=== PATIENT | male | born 1970 | race Caucasian/White ===

== ENCOUNTER 2019-04-28 15:13 | Observation (INO) | payer SELFPAY ==
--- OUTSIDE RECORDS SUMMARY | 2019-04-28 15:15 | XMS REPORT | Clinical Summary ---
:1970 Author Organization [facility] Address [address] [place] [address] Care Team Providers Name Role Phone Nighat Primary Care Provider Allergies Active Allergy Reactions Severity Noted Date Comments Penicillins Other (See Comments) High 06/05/2014 Unknown Medications Medication Sig Dispensed Refills Start Date End Date Status testosterone Inject 0.5 mLs (100 10 mL 0 06/05/2014 Active cypionate mg total) (DEPOTESTOTERONE intramuscularly once CYPIONATE) 200 a week. mg/mL injectionIndication s: Low testosterone cholecalciferol, Take 1 tablet (5,000 90 tablet 1 06/11/2014 Active vitamin D3, Units total) by mouth (VITAMIN D3) 5,000 daily. unit TabIndications: Vitamin D deficiency amLODIPine Take 1 tablet (10 mg 30 tablet 4 11/15/2014 Active (NORVASC) 10 MG total) by mouth tablet daily. benazepril-hydrochl Take 1 tablet by 30 tablet 4 11/15/2014 Active orthiazide mouth daily. (LOTENSIN HCT) 20-12.5 mg per tablet FARXIGA 10 mg Tab TAKE ONE (1) 30 tablet 0 04/29/2015 Active TABLET(S) BY MOUTH ONCE A DAY. pravastatin TAKE ONE (1) 30 tablet 0 05/20/2015 Active (PRAVACHOL) 20 MG TABLET(S) BY MOUTH tablet ONCE A DAY IN THE EVENING. Active Problems Problem Noted Date Low testosterone 06/05/2014 Vitamin D deficiency 06/05/2014 Diabetes 06/05/2014 Hypertension 06/05/2014 Conjunctivitis 06/05/2014 Vision changes 06/05/2014 Social History Tobacco Use Types Packs/Day Years Used Date Former Smoker Cigarettes 2 Quit: 09/12/2009 Smokeless Tobacco: Former User Snuff, Chew Tobacco Cessation: Counseling Given: No Alcohol Use Drinks/Week oz/Week Comments Yes 0.0 Former - Alcohol abuse Sex Assigned at Date Recorded Not on file Job Start Date Occupation Industry Not on file Not on file Not on file Travel History Travel Start Travel End No recent travel history available. Last Filed Vital Signs Not on file Plan of Treatment Health Maintenance Due Date Last Done Comments INFLUENZA VACCINE 06/12/2018 Results Not on fileafter 04/27/2018 Insurance Payer Benefit Plan / Group Subscriber ID Type Phone Address [employer] [address] [phone]
--- OUTSIDE RECORDS SUMMARY | 2019-04-28 15:16 | XMS REPORT ---
:1970 Author Organization [facility] Address [address] [place] [address] [address] [place] [address] Care Team Providers Name Role Phone Unavailable Unavailable Unavailable Problems This patient has no known problems. Allergies, Adverse Reactions, Alerts This patient has no known allergies or adverse reactions. Medications This patient has no known medications. Encounters Start End Encounter Admission Attending Care Care Encounter Date/Time Date/Time Type Type Clinicians Facility Department ID 2019-02-07 2019-02-07 Emergency E [facility] [id number] 02:00:00 02:00:00
--- OUTSIDE RECORDS SUMMARY | 2019-04-28 15:16 | XMS REPORT | Summary of Care ---
:1970 Author Organization [facility] Address [address] [place] [address]- Encounter HQ Encntr_alias(FIN) [id number] Date(s): 02/07/19 - 02/07/[address] [address]- Encounter Diagnosis Shoulder pain (Discharge Diagnosis) - 02/07/19 Hypertension (Discharge Diagnosis) - 02/07/19 Discharge Disposition: Home or Self Care Attending Physician: Marta Gongora MD Vital Signs Most recent to oldest [Reference Range]: 1 2 Height 172.72 cm (02/07/19 2:04 AM) Blood Pressure [90-140/60-90 mmHg] 158/81 mmHg 190/110 mmHg *HI* *HI* (02/07/19 2:59 AM) (02/07/19 2:04 AM) Respiratory Rate [14-20 BRMIN] 18 BRMIN 18 BRMIN (02/07/19 3:08 AM) (02/07/19 2:04 AM) Peripheral Pulse Rate [60-100 bpm] 76 bpm 87 bpm (02/07/19 3:08 AM) (02/07/19 2:04 AM) Weight 100 kg (02/07/19 2:04 AM) Body Mass Index 33.52 m2 (02/07/19 2:04 AM) Problem List Condition Effective Dates Status Health Status Informant Chest pain(Confirmed) Active Diabetes mellitus - adult Active onset(Confirmed) Diabetes(Confirmed) Resolved Essential hypertension1 05/09/12 Active Hypercholesterolemia2 Active Hyperlipidemia3 05/09/12 Active Hypertension(Confirmed) Active HTN (hypertension)(Confirmed) Active Type 2 diabetes mellitus4 05/09/12 Active Vitamin D deficiency5 05/09/12 Active 1Data migrated from [employer] on 02/08/15.2Data migrated from [employer] on 02/08/15.3Data migrated from [employer] on 02/08/15.4Data migrated from [employer] on 02/08/15.5Data migrated from [employer] on 02/08/15. Allergies, Adverse Reactions, Alerts Substance Reaction Severity Status penicillins1 Active 1Data migrated from [employer] on 04/10/15. Originally documented as PENICILLIN. rash Medications morphine Sulfate 6 mg, Route: IM, ONCE, Dosing Weight 100, kg, Priority: STAT, Start date: 2:21:00 CDT, Stopdate: 02/07/19 2:21:00 CDT Start Date: 02/07/19 Stop Date: 02/07/19 Status: Completed Results No data available for this section Immunizations No data available for this section Procedures No data available for this section Social History Social History Type Response Smoking Status Never smoker; Exposure to Tobacco Smoke None; Cigarette Smoking Last 365 Days No; Reg Smoking Cessation Counseling No entered on: 02/07/19 Assessment and Plan No data available for this section
--- OUTSIDE RECORDS SUMMARY | 2019-04-28 15:16 | XMS REPORT | Summary of Care ---
:1970 Author Organization [facility] Address [address] [place] [address]- Encounter HQ Encntr_brittaney(FIN) [id number] Date(s): 04/16/17 - 04/17/[address] [address]- Discharge Diagnosis: Sinusitis Discharge Disposition: Home or Self Care Attending Physician: Alex Juarez MD Vital Signs Most recent to oldest [Reference Range]: 1 Height 172.72 cm (04/17/17 12:00 AM) Blood Pressure [90-140/60-90 mmHg] 171/107 mmHg *HI* (04/17/17 12:00 AM) Respiratory Rate [14-20 BRMIN] 18 BRMIN (04/17/17 12:00 AM) Peripheral Pulse Rate [60-100 bpm] 73 bpm (04/17/17 12:00 AM) Weight 98.636 kg (04/17/17 12:00 AM) Body Mass Index 33.06 m2 (04/17/17 12:00 AM) Problem List Condition Effective Dates Status [...] Severity Status penicillins1 Active 1Data migrated from [employer] on 04/10/15. Originally documented as PENICILLIN. rash Medications doxycycline 100 mg, 1 tab, Route: PO, Drug form: TAB, ONCE, Dosing Weight 98.636, kg, Start date: 04/17/17 0:19:00 CDT, Stop date: 04/17/17 0:19:00 CDT Notes: NO MILK/ANTACIDS/IRON Take 1 hour before or 2 hours after dairy products Start Date: 04/17/17 Stop Date: 04/17/17 Status: Completeddoxycycline monohydrate 100 mg oral tablet 100 mg=1 tab, PO, Q12H, X 10 day, # 20 tab, 0 Refill(s) Start Date: 04/17/17 Stop Date: 04/27/17 Status: OrderedFlonase 0.05 mg/inh nasal spray 2 spray, NASAL, BID, # 16 gm, 0 Refill(s) Start Date: 04/17/17 Status: OrderedNorco 5/325 oral tablet 2 tab, Route: PO, Drug Form: TAB, Dosing Weight 98.636, kg, ONCE, STAT, Start date: 04/17/17 0:26:00CDT, Stop date: 04/17/17 0:26:00 CDT Notes: (Same as: [place] 325/5) Do not exceed 4gm/day of acetaminophen. Start Date: 04/17/17 Stop Date: 04/17/17 Status: CompletedTylenol with Codeine #3 oral tablet 1 - 2 tab, PO, Q6H, PRN Pain, X 2 day, # 20 tab, 0 Refill(s) Start Date: 04/17/17 Stop Date: 04/19/17 Status: Completed Results No data available for this section Immunizations No data available for this section Procedures No data available for this section Social History Social History Type Response Smoking Status Never smoker; Exposure to Tobacco Smoke None; Cigarette Smoking Last 365 Days No; Reg Smoking Cessation Counseling No Assessment and Plan No data available for this section
--- OUTSIDE RECORDS SUMMARY | 2019-04-28 15:16 | XMS REPORT | Continuity of Care Document ---
:1970 Author Organization [facility] Care Team Providers Name Role Phone [facility] Unavailable Unavailable Problems Problem Status Onset Classification Date Comments Source Date Reported Pain in unspecified MH The shoulder 019 9 [place] Essential (primary) MH The hypertension 019 9 [place] L SHOULDER PAIN Active MH The 019 [facility] Chronic sinusitis, MH The unspecified 017 7 [place] FACIAL SWELLING Active MH The 017 [place] Essential hypertension Active Problem Data The (disorder) 012 9 migrated [place] from [employer] on 02/08/15. Hyperlipidemia Active Problem Data The (disorder) 012 9 migrated [place] from [employer] on 02/08/15. Vitamin D deficiency Active Problem Data The (disorder) 012 9 migrated [place] from [employer] on 02/08/15. Chest pain (finding) Active Problem MH The 9 [place] Diabetes mellitus type Active Problem The 2 (disorder) 9 [place] Diabetes mellitus Resolved Problem The (disorder) 9 [place] Hypercholesterolemia Active Problem Data The (disorder) 9 migrated [place] from [employer] on 02/08/15. Hypertensive disorder, Active Problem The systemic arterial 9 [place] (disorder) Medications Medication Details Route Status Patient Ordering Order Source Instructions Provider Date Morphine 6 mg, Inactive The Route: IM, Wes Rosario ONCE, Dosing Weight 100, kg, Priority: STAT, Start date: 02/07/19 2:21:00 CDT, Stop date: 02/07/19 2:21:00 CDT Acetaminophen 2 tab, Inactive The 325 MG / Route: PO, Jacob Rosario Hydrocodone Drug Form: Bitartrate 5 MG TAB, Oral Tablet Dosing [[place] 5/325] Weight 98.636, kg, ONCE, STAT, Start date: 04/17/17 0:26:00 CDT, Stop date: 04/17/17 0:26:00 CDTNotes: (Same as: [place] 325/5) Do not exceed 4gm/day of acetaminop hen. Acetaminophen 1 - 2 tab, No Longer The 300 MG / Codeine PO, Q6H, Active [facility] [place] Phosphate 30 MG PRN Pain, Oral Tablet X 2 day, # [Tylenol with 20 tab, 0 Codeine #3] Refill(s) Fluticasone 2 spray, Active The propionate 0.05 NASAL, Jacob Rosario MG/ACTUAT BID, # 16 Metered Dose gm, 0 Nasal [place] Refill(s) [Flonase] doxycycline 100 mg=1 Active The monohydrate 100 tab, PO, Jacob BreauxAlgood mg oral tablet Q12H, X 10 day, # 20 tab, 0 Refill(s) Doxycycline 100 mg, 1 Inactive The tab, Jacob [place] Route: PO, Drug form: TAB, ONCE, Dosing Weight 98.636, kg, Start date: 04/17/17 0:19:00 CDT, Stop date: 04/17/17 0:19:00 CDTNotes: NO MILK/ANTAC IDS/IRON Take 1 hour before or 2 hours after dairy products Allergies, Adverse Reactions, Alerts Substance Category Reaction Severity Reaction Status Date Comments Source type Reported penicillins Assertion Drug Active Data The <sup>1</sup allergy 2 migrated [place] > from [employer] on 04/10/15. Originally documented as PENICILLIN. rash Immunizations No Data Provided for This Section Results No Data Provided for This Section Pathology Reports No Data Provided for This Section Diagnostic Reports Report Value Date Source Shoulder series DX LEFT SHOULDER 02/07/2019 [facility] Clinical Indication: - pain/proximal humerus Comparison: None FINDINGS: The 3 views of the shoulder show normal alignment at the glenohumeral joint. There are no fractures or dislocations. The acromioclavicular joint and coracoclavicular spaces are intact. The acromio n and coracoid processes appear unremarkable. The subacromial space is unremarkable. The visualized scapula and clavicle are unremarkable. There are no radiopaque foreign bodies or soft tissue swelling. If there is further concern, followup radiographs or MRI of the shoulder may be performed for complete assessment. IMPRESSION: No fractures or dislocations of shoulder. SL: [id number] Chest 2 views DX Clinical Indication: - fall/ left shoulder pain 02/07/2019 [facility] Comparison: None FINDINGS: PA and lateral chest radiographs were obtained. MEDIASTINUM: The cardiac silhouette is normal in size. The aorta is unremarkable. LUNGS: Lung volumes are maintained. There are no focal infiltrates or effusions. There are no pneumothoraces noted. BONES: The visualized osseous structures are unremarkable. IMPRESSION: No acute infiltrates or effusions. SL: [id number] Consultation Notes No Data Provided for This Section Discharge Summaries No Data Provided for This Section History and Physicals No Data Provided for This Section Vital Signs Vital Sign Value Date Comments Source Heart Rate 76 02/07/2019 [facility] Respitory Rate 18 02/07/2019 [facility] Systolic (mm Hg) 158 02/07/2019 [place] Diastolic (mm Hg) 81 02/07/2019 [facility] Height 172.72 cm 02/07/2019 [facility] Weight 100 02/07/2019 [facility] BMI Calculated 33.52 02/07/2019 [facility] Respitory Rate 18 02/07/2019 [place] Systolic (mm Hg) 190 02/07/2019 [place] Diastolic (mm Hg) 110 02/07/2019 [facility] Heart Rate 87 02/07/2019 [facility] Respitory Rate 18 04/17/2017 [place] Systolic (mm Hg) 171 04/17/2017 [place] Diastolic (mm Hg) 107 04/17/2017 [facility] Heart Rate 73 04/17/2017 [place] Weight 98.636 04/17/2017 [facility] BMI Calculated 33.06 04/17/2017 [facility] Height 172.72 cm 04/17/2017 [facility] Encounters Location Location Encounter Encounter Reason Attending ADM DC Status Source Details Type Number For Provider Date Date Visit [facility] [id number] Alex 04/17 04/17 Kemar Juarez /2016 [facility] [id number] Marta 02/07 02/07 Kemar Gongora /2018 [facility] Procedures No Data Provided for This Section Assessment and Plan No Data Provided for This Section Plan of Care No Data Provided for This Section Social History Social History Date Source Social History TypeResponse 02/07/2019 [facility] Smoking Status Never smoker; Exposure to Tobacco Smoke None; Cigarette Smoking Last 365 Days No; Reg Smoking Cessation Counseling No entered on: 02/07/19 Family History No Data Provided for This Section Advance Directives No Data Provided for This Section Functional Status No Data Provided for This Section
--- NOTE | 2019-04-28 15:56 | RAD REPORT ---
EXAM DESCRIPTION: RAD - Chest Single View - 04/28/2019 3:51 pm CLINICAL HISTORY: CHEST PAIN Chest pain. COMPARISON: <Comparisons> FINDINGS: Portable technique limits examination quality. The lungs are grossly clear. The heart is normal in size. No displaced fractures. IMPRESSION: No acute intrathoracic process suspected.
[2019-04-28 16:01] LABS: Absolute Lymphocytes (CBC) 1.8 K/uL (0.7-4.9); Basophils % 0.6 % (0-1.3); Hematocrit 47.2 % (39.6-49.0); Lymphocytes % 29.6 % (15.3-44.8); MPV 7.5 fL (7.6-11.3); RBC Red Blood Cell Count 5.88 M/uL (4.33-5.43)
[2019-04-28 16:02] LABS: Protime INR 0.96
[2019-04-28 16:19] LABS: ALT/SGPT 28 U/L (12-78); AST/SGOT 12 U/L (15-37); Albumin 3.8 g/dL (3.4-5.0); Alkaline Phosphatase 34 U/L (45-117); BUN Blood Urea Nitrogen 10 mg/dL (7-18); Bicarbonate 20 mmol/L (21-32); Bilirubin Direct 0.1 mg/dL (0-0.2); Bilirubin Total 0.6 mg/dL (0.2-1.0); Glucose Level 297 mg/dL (74-106); NT PRO-BNP 17 pg/mL (<125); Protein, Total 7.1 g/dL (6.4-8.2); Sodium Level 138 mmol/L (136-145); Troponin (Emerg Dept Use Only) < 0.02 ng/mL (0.0-0.045)
[2019-04-28] MEDS ORDERED: NA CHLORIDE 0.9% 1,000 ML ONE ×2 (16:20→17:04)
[2019-04-28] MEDS ORDERED: INSULIN -REGULAR HUMAN 50 UNIT/0.5 ML ML ONE (16:22)
--- NOTE | 2019-04-28 16:53 | RAD REPORT ---
EXAM DESCRIPTION: CT - Head Brain Wo Cont - 04/28/2019 4:45 pm CLINICAL HISTORY: Declining state;Dizziness Headache, drowsiness COMPARISON: <Comparisons> TECHNIQUE: All CT scans are performed using dose optimization technique as appropriate and may inclu de automated exposure control or mA/KV adjustment according to patient size. FINDINGS: No intracranial hemorrhage, hydrocephalus or extra-axial fluid collection.No areas of brai n edema or evidence of midline shift. The paranasal sinuses and mastoids are clear. The calvarium is intact. IMPRESSION: No acute intracranial abnormality.
[2019-04-28] MEDS ORDERED: LORazepam 2 MG/ML VIAL ONE (17:06)
--- NOTE | 2019-04-28 17:08 | RAD REPORT ---
EXAM DESCRIPTION: CT - Chest For Pe Angio - 04/28/2019 4:53 pm CLINICAL HISTORY: Chest pain. CHEST PAIN COMPARISON: <Comparisons> TECHNIQUE: CT angiogram of the pulmonary arteries was performed with MIP. All CT scans are performed using dose optimization technique as appropriate and may include automated exposure control or mA/KV adjustment according to patient size. FINDINGS: No evidence of pulmonary thromboembolism. No acute aortic finding demonstrated. The lungs are clear. No significant pericardial or pleural fluid. No concerning bony finding. IMPRESSION: No evidence of pulmonary thromboembolism. No acute lung findings.
[2019-04-28 17:29] LABS: Urine Blood NEGATIVE (NEG); Urine Glucose 2+ (NEG); Urine Protein NEGATIVE (NEG)
--- NOTE | 2019-04-28 18:00 | ER ---
Nurse's Notes [facility] Name: Zac Arthur Age: 48 yrs Sex: Male : 1970 Arrival Date: 04/28/2019 Time: 15:15 Bed 6 Private MD: Diagnosis: Chest pain, unspecified;Dehydration;Lactic acidosis Presentation: 04/28 15:22 Presenting complaint: Patient states: Upper chest pain and SOB upon waking today. hb Denies cough/fever. Transition of care: patient was not received from another setting of care. Onset of symptoms was April 28, 2019. Risk Assessment: Do you want to hurt yourself or someone else? Patient reports no desire to harm self or others. Initial Sepsis Screen: Does the patient meet any 2 criteria? No. Patient's initial sepsis screen is negative. Does the patient have a suspected source of infection? No. Patient's initial sepsis screen is negative. Care prior to arrival: Medication(s) given: ASA, 1 hr GRILL ATTENDANT. 15:22 Method Of Arrival: Wheelchair hb 15:22 Acuity: SAMMY 3 hb Historical: - Allergies: 15:25 PENICILLINS; hb - Home Meds: 15:25 Metformin Oral [Active]; Lisinopril Oral [Active]; Glimepiride Oral [Active]; hb Metoprolol Tartrate Oral [Active]; - PMHx: 15:25 Diabetes - NIDDM; Hypertension; hb - PSHx: 15:25 Hernia repair; hb - Immunization history:: Adult Immunizations up to date. - Social history:: Smoking status: Patient/guardian denies using tobacco. - Ebola Screening: : No symptoms or risks identified at this time. Screenin:30 Abuse screen: Denies threats or abuse. Denies injuries from another. Nutritional ph screening: No deficits noted. Tuberculosis screening: No symptoms or risk factors identified. Fall Risk None identified. Assessment: 15:45 General: Appears in no apparent distress. uncomfortable, well groomed, Behavior is ph cooperative, appropriate for age, anxious, Denies fever. Pain: Complains of pain in chest Pain does not radiate. Quality of pain is described as pressure, Pain began this morning. Neuro: Level of Consciousness is awake, alert, obeys commands, Oriented to person, place, time, situation. Cardiovascular: Reports chest pain, fatigue, Denies diaphoresis, nausea, shortness of breath, vomiting, pt states, " I feel hot on the inside." Capillary refill < 3 seconds in bilateral fingers Patient's skin is warm and dry. Rhythm is sinus tachycardia Chest pain quality is pressure. Respiratory: Airway is patent Respiratory effort is even, unlabored, Respiratory pattern is regular, symmetrical. GI: Abdomen is round non-distended, Patient currently denies abdominal pain, diarrhea, nausea, vomiting. Derm: Skin is intact, Skin is flushed. Musculoskeletal: Circulation, motion, and sensation intact. Range of motion: intact in all extremities. 17:15 Reassessment: Patient appears in no apparent distress at this time. Patient and/or ph family updated on plan of care and expected duration. Pain level reassessed. Patient is alert, oriented x 3, equal unlabored respirations, skin warm/dry/pink. Pt continues to c/o "feeling hot inside", pt afebrile at this time, cool washcloth placed to head and box fan at bedside, VSS, will continue to monitor. 18:30 Reassessment: Patient appears in no apparent distress at this time. Patient and/or ph family updated on plan of care and expected duration. Pain level reassessed. Pt resting comfortably, VSS, at bedside. 19:20 General: Appears in no apparent distress. Behavior is appropriate for age. Pain: Denies ea pain. Neuro: Level of Consciousness is awake, alert, obeys commands, Oriented to person, place, time, situation. Cardiovascular: Patient's skin is warm and dry. Respiratory: Airway is patent Respiratory effort is even, unlabored, Respiratory pattern is regular, symmetrical. GI: Abdomen is round non-distended. Derm: Skin is intact, Skin is dry, Skin is flushed. Musculoskeletal: Circulation, motion, and sensation intact. 20:03 Reassessment: Patient and/or family updated on plan of care and expected duration. Pain ea level reassessed. Patient is alert, oriented x 3, equal unlabored respirations, skin warm/dry/pink. Pt taken to fourth floor via wheelchair, per tech, accompanied by , pt tolerating well. No s/s of pain or discomfort noted at this time. Vital Signs: 15:25 BP 157 / 88; Pulse 105; Resp 16; Temp 98.2; Pulse Ox 96% on R/A; Weight 99.34 kg; hb Height 5 ft. 8 in. (172.72 cm); Pain 5/10; 16:45 BP 145 / 98; Pulse 93; Resp 18; Pulse Ox 99% on R/A; ph 17:48 BP 146 / 88; Pulse 96; Resp 18; Pulse Ox 98% on R/A; ph 18:30 BP 151 / 82; Pulse 89; Resp 17; Temp 98; Pulse Ox 97% on R/A; rv 19:36 BP 147 / 87; Pulse 90; Resp 17; Temp 98; Pulse Ox 100% on R/A; rv 15:25 Body Mass Index 33.30 (99.34 kg, 172.72 cm) hb ED Course: 15:15 Patient arrived in ED. mr 15:24 Triage completed. hb 15:25 Arm band placed on left wrist. hb 15:40 Shanti Mckeon, RN is Primary Nurse. ph 15:40 Inserted saline lock: 20 gauge in right antecubital area, using aseptic technique. ph Blood collected. 15:46 Alicia Campos FNP-C is PHCP. snw 15:46 Karlos Daniel MD is Attending Physician. snw 15:51 XRAY Chest (1 view) In Process Unspecified. EDMS 16:00 Patient has correct armband on for positive identification. Placed in gown. Bed in low ph position. Call light in reach. Side rails up X2. monitoring tech on. Pulse ox on. NIBP on. Door closed. Noise minimized. Cool cloth applied. Head of bed elevated. 16:45 CT Head Brain wo Cont In Process Unspecified. EDMS 16:53 CT Chest For PE Angio In Process Unspecified. EDMS 17:54 Damon Calabrese DO is Hospitalizing Provider. snw 19:36 No provider procedures requiring assistance completed. Patient admitted, IV remains in ph place. Patient maintains SpO2 saturation greater than 95% on room air. Administered Medications: 16:30 Drug: NS 0.9% 1000 ml Route: IV; Rate: 1 bolus; Site: right antecubital; ph 18:11 Follow up: IV Status: Completed infusion; IV Intake: 1000ml ph 16:31 Drug: Insulin Regular Human 5 units {Co-Signature: rv (Damon Mckeon RN).} Route: ph IVP; Site: right antecubital; 19:19 Follow up: Response: No adverse reaction ph 17:24 Drug: NS 0.9% 1000 ml Route: IV; Rate: 1 bolus; Site: right antecubital; ph 19:19 Follow up: Response: No adverse reaction; IV Status: Completed infusion; IV Intake: ph 1000ml 17:24 Drug: Ativan 2 mg Route: IVP; Site: right antecubital; ph 19:27 Follow up: Response: No adverse reaction; Anxiety decreased ph Point of Care Testing: Blood Glucose: 15:49 Blood Glucose: 296 mg/dL; ph Ranges: Intake: 18:11 IV: 1000ml; Total: 1000ml. ph 19:19 IV: 1000ml; Total: 2000ml. ph 19:36 IV: 2000ml; Total: 4000ml. ph Output: 19:36 Urine: 700ml (Voided); Total: 700ml. ph Outcome: 17:59 Decision to Hospitalize by Provider. snw 19:36 Admitted to Med/surg accompanied by tech, via wheelchair, room 420, with chart, Report rv called to VASQUEZ PARKER\\E\\ 19:36 Condition: good 19:36 Instructed on the need for admit. 20:04 Patient left the ED. ea Signatures: Dispatcher [employer] EDMS Alicia Campos, CASSYC MASTER [place]-Braydon Juliet DownsShanti, RN ELENA Yvonne Valiente, RN ELENA Ana Le RN RN ea Vicente, Ronaldo, RN RN rv Ronaldo Vicente RN rv
--- NOTE | 2019-04-28 18:01 | EDPHYS ---
Physician Documentation [facility] Name: Zac Arthur Age: 48 yrs Sex: Male : 1970 Arrival Date: 04/28/2019 Time: 15:15 Bed 6 Private MD: ED Physician Karlos Daniel HPI: 04/28 17:50 This 48 yrs old Male presents to ER via Wheelchair with complaints of Chest snw Tightness. 17:50 The patient or guardian reports chest pain that is located primarily in the anterior snw chest wall, bilaterally. Onset: suddenly, this morning. The pain does not radiate. Associated signs and symptoms: Pertinent positives: severe muscle pain all over. The chest pain is described as causing indigestion. Duration: The patient or guardian reports a single episode, that is still ongoing. Severity of pain: At its worst the pain was moderate severe. The patient has not experienced similar symptoms in the past. It is unknown whether or not the patient has recently seen a physician. 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 In and out of vehicle all day, no known exposure. Historical: - Allergies: 15:25 PENICILLINS; hb - Home Meds: 15:25 Metformin Oral [Active]; Lisinopril Oral [Active]; Glimepiride Oral [Active]; hb Metoprolol Tartrate Oral [Active]; - PMHx: 15:25 Diabetes - NIDDM; Hypertension; hb - PSHx: 15:25 Hernia repair; hb - Immunization history:: Adult Immunizations up to date. - Social history:: Smoking status: Patient/guardian denies using tobacco. - Ebola Screening: : No symptoms or risks identified at this time. ROS: 17:46 Constitutional: Negative for fever, chills, and weight loss, Eyes: Negative for injury, snw pain, redness, and discharge. 17:46 Neck: Negative for injury, pain, and swelling. 17:46 Respiratory: Negative for shortness of breath, cough, wheezing, and pleuritic chest pain, Abdomen/GI: Negative for abdominal pain, nausea, vomiting, diarrhea, and constipation, Back: Negative for injury and pain, : Negative for injury, bleeding, discharge, and swelling. 17:46 Neuro: Negative for headache, weakness, numbness, tingling, and seizure. 17:46 ENT: Positive for dry mouth. 17:46 Cardiovascular: Positive for indigestion all day. 17:46 MS/extremity: Positive for pain all over. 17:46 Skin: Positive for stinging, heat intolerance, no sweating. 17:46 Psych: Positive for anxiety. Exam: 16:40 Constitutional: This is a well developed, well nourished patient who is awake, alert, snw and in no acute distress. Head/Face: Normocephalic, atraumatic. Eyes: Pupils equal round and reactive to light, extra-ocular motions intact. Lids and lashes normal. Conjunctiva and sclera are non-icteric and not injected. Cornea within normal limits. Periorbital areas with no swelling, redness, or edema. ENT: Nares patent. No nasal discharge, no septal abnormalities noted. Tympanic membranes are normal and external auditory canals are clear. Oropharynx with no redness, swelling, or masses, exudates, or evidence of obstruction, uvula midline. Mucous membranes bone dry. Pt with trouble getting his tongue out of his mouth. Left smile not quite symmetrical. Neck: Trachea midline, no thyromegaly or masses palpated, and no cervical lymphadenopathy. Supple, full range of motion without nuchal rigidity, or vertebral point tenderness. No Meningismus. Chest/axilla: Normal chest wall appearance and motion. Nontender with no deformity. No lesions are appreciated. 16:40 Respiratory: Lungs have equal breath sounds bilaterally, clear to auscultation and percussion. No rales, rhonchi or wheezes noted. No increased work of breathing, no retractions or nasal flaring. Abdomen/GI: Soft, non-tender, with normal bowel sounds. No distension or tympany. No guarding or rebound. No evidence of tenderness throughout. Back: No spinal tenderness. No costovertebral tenderness. Full range of motion. 16:40 MS/ Extremity: Pulses equal, no cyanosis. Neurovascular intact. Full, normal range of motion. Neuro: Awake and alert, GCS 15, oriented to person, place, time, and situation. Cranial nerves II-XII grossly intact. Motor strength 5/5 in all extremities. Sensory grossly intact. Cerebellar exam normal. Normal gait. 16:40 Cardiovascular: Rate: tachycardic, Rhythm: regular, Pulses: no pulse deficits are appreciated, JVD: is not appreciated. 16:40 ECG was reviewed by the Attending Physician. 16:40 Skin: Appearance: Color: Purplish, bone dry, no diaphoresis. C/o stinging pain all over, indigestion. 16:40 Psych: Behavior/mood is anxious, Affect is animated, Oriented to person, place, time. Vital Signs: 15:25 BP 157 / 88; Pulse 105; Resp 16; Temp 98.2; Pulse Ox 96% on R/A; Weight 99.34 kg; hb Height 5 ft. 8 in. (172.72 cm); Pain 5/10; 16:45 BP 145 / 98; Pulse 93; Resp 18; Pulse Ox 99% on R/A; ph 17:48 BP 146 / 88; Pulse 96; Resp 18; Pulse Ox 98% on R/A; ph 18:30 BP 151 / 82; Pulse 89; Resp 17; Temp 98; Pulse Ox 97% on R/A; rv 19:36 BP 147 / 87; Pulse 90; Resp 17; Temp 98; Pulse Ox 100% on R/A; rv 15:25 Body Mass Index 33.30 (99.34 kg, 172.72 cm) hb MDM: 15:46 Patient medically screened. snw 17:59 The patient was not given aspirin in the Emergency Department. Patient reports taking snw aspirin within the past 24 hours. Data reviewed: vital signs, nurses notes, lab test result(s), EKG, radiologic studies. Counseling: I had a detailed discussion with the patient and/or guardian regarding: the historical points, exam findings, and any diagnostic results supporting the discharge/admit diagnosis, the presence of at least one elevated blood pressure reading (>120/80) during this emergency department visit, lab results, radiology results, the need for further work-up and treatment in the hospital. Physician consultation: Damon Calabrese DO was called at 18:01, was contacted at 18:01, regarding admission, to the telemetry unit. in the emergency department to see patient at 18:01. 04/28 15:41 Order name: Basic Metabolic Panel ph 04/28 15:41 Order name: CBC with Diff ph 04/28 15:41 Order name: LFT's ph 04/28 15:41 Order name: Magnesium; Complete Time: 18:12 ph 04/28 15:41 Order name: NT PRO-BNP; Complete Time: 18:12 ph 04/28 15:41 Order name: PT-INR; Complete Time: 16:21 ph 04/28 15:41 Order name: Troponin (emerg Dept Use Only); Complete Time: 18:12 ph 04/28 15:42 Order name: Basic Metabolic Panel; Complete Time: 18:12 EDMS 04/28 15:42 Order name: CBC with Automated Diff; Complete Time: 16:21 EDMS 04/28 15:42 Order name: Liver (Hepatic) Function; Complete Time: 18:12 EDMS 04/28 15:48 Order name: glucometer results - FOR PT WITH NO ID; Complete Time: 16:21 ph 04/28 15:55 Order name: Lactate; Complete Time: 16:58 snw 04/28 17:21 Order name: Urine Dipstick--Ancillary (enter results); Complete Time: 17:29 ms 04/28 15:41 Order name: XRAY Chest (1 view); Complete Time: 16:21 ph 04/28 15:41 Order name: EKG; Complete Time: 15:42 ph 04/28 15:41 Order name: Cardiac monitoring; Complete Time: 15:53 ph 04/28 15:41 Order name: EKG - Nurse/Tech; Complete Time: 15:49 ph 04/28 15:41 Order name: IV Saline Lock; Complete Time: 15:49 ph 04/28 15:41 Order name: Labs collected and sent; Complete Time: 15:49 ph 04/28 15:55 Order name: CT Head Brain wo Cont; Complete Time: 16:58 snw 04/28 15:55 Order name: CT Chest For PE Angio; Complete Time: 17:11 snw 04/28 17:50 Order name: Add On-Lab snw 04/28 17:51 Order name: Thyroid Stimulating Hormone; Complete Time: 18:12 EDMS 04/28 18:01 Order name: UDS; Complete Time: 07:04 snw 04/28 19:51 Order name: Lactate Sepsis 2 HR Follow-up; Complete Time: 07:04 EDMS 04/28 15:41 Order name: O2 Per Protocol; Complete Time: 15:49 ph 04/28 15:41 Order name: O2 Sat Monitoring; Complete Time: 15:49 ph Administered Medications: 16:30 Drug: NS 0.9% 1000 ml Route: IV; Rate: 1 bolus; Site: right antecubital; ph 18:11 Follow up: IV Status: Completed infusion; IV Intake: 1000ml ph 16:31 Drug: Insulin Regular Human 5 units {Co-Signature: rv (Damon Mckeon RN).} Route: ph IVP; Site: right antecubital; 19:19 Follow up: Response: No adverse reaction ph 17:24 Drug: NS 0.9% 1000 ml Route: IV; Rate: 1 bolus; Site: right antecubital; ph 19:19 Follow up: Response: No adverse reaction; IV Status: Completed infusion; IV Intake: ph 1000ml 17:24 Drug: Ativan 2 mg Route: IVP; Site: right antecubital; ph 19:27 Follow up: Response: No adverse reaction; Anxiety decreased ph Point of Care Testing: Blood Glucose: 15:49 Blood Glucose: 296 mg/dL; ph Ranges: Critical Glucose Levels:Adult <50 mg/dl or >400 mg/dl <40 mg/dl or >180 mg/dl Disposition: 04/28/19 17:59 Hospitalization ordered by Damon Calabrese for Observation. Preliminary diagnosis are Chest pain, unspecified, Dehydration, Lactic acidosis. - Bed requested for Telemetry/MedSurg (observation). - Status is Observation. ea - Condition is Stable. - Problem is new. - Symptoms are unchanged. UTI on Admission? No Addendum: 05/01/2019 15:14 Co-signature as Attending Physician, Karlos Daniel MD. g s Signatures: Dispatcher [employer] [facility] Odalis Ortiz RN RN dw Alicia Campos, STRINGING MACHINE TENDER-C STRINGING MACHINE TENDER-Csnw Shanti Mckeon RN RN Yvonne Valiente RN ELENA Ana Le RN RN ea Starr, Gregory, MD MD Damon silva Corrections: (The following items were deleted from the chart) 04/28 16:22 15:55 Arterial Blood Gas+RC.LAB.BRZ ordered. [facility] EDMO 18:49 17:59 Hospitalization Ordered by Damon Calabrese DO for Observation. Preliminary diagnosis is Chest pain, unspecified; Dehydration; Lactic acidosis. Bed requested for Telemetry/MedSurg (observation). Status is Observation. Condition is Stable. Problem is new. Symptoms are unchanged. UTI on Admission? No. snw 20:04 18:49 04/28/2019 17:59 Hospitalization Ordered by Damon Calabrese DO for Observation. ea Preliminary diagnosis is Chest pain, unspecified; Dehydration; Lactic acidosis. Bed requested for Telemetry/MedSurg (observation). Status is Observation. Condition is Stable. Problem is new. Symptoms are unchanged. UTI on Admission? No. dw
--- NOTE | 2019-04-28 18:17 | P.HP ---
Certification for Inpatient Patient admitted to: Observation With expected LOS: <2 Midnights Patient will require the following post-hospital care: None Practitioner: I am a practitioner with admitting privileges, knowledge of patient current condition, hospital course, and medical plan of care. Services: Services provided to patient in accordance with Admission requirements found in Title 42 Section 412.3 of the Code of Federal Regulations Patient History Date of Service: 04/28/19 Primary Care Provider: Dr. Lamar([place]) Reason for admission: Chest pain, shortness of breath History of Present Illness: 48-year-old male presented to the emergency room with chest pain and shortness of breath. Patient with history of diabetes, hypertension. Over the past 24 hr patient has been vacationing down in this area. He has been drinking some alcohol and tea. He has been outside in the extreme heat. This morning he woke up feeling very hot. His mouth was very dry. He reported increased fatigue and chest pain with shortness of breath. Chest pain was more of chest tightness. He denied any nausea, vomiting, diarrhea. No sick contacts noted. In the ER patient evaluated. Patient appeared severely dehydrated upon admission. He did receive 2 boluses of IV fluids. Vital signs stable. CT head unremarkable. CT chest unremarkable. Chest x-ray also unremarkable. White count 6.2, hemoglobin 14. Sodium 138, potassium 4.0. BUN of 10, creatinine 1.08 with a GFR 73. Glucose slightly elevated. Bicarb 20. Lactic acid was elevated at 3.7. Troponin unremarkable. Patient was admitted for further observation and treatment. When I saw the patient the ER, family was at bedside. Patient reports increase indigestion with dry mouth. Patient stable at this time. Home medications list reviewed: Yes - Past Medical/Surgical History Diabetic: Yes -: Diabetes mellitus type 2, non insulin dependent -: Hypertension -: Obesity -: Tobacco abuse -: Alcohol use -: Hernia repair Psychosocial/ Personal History: Patient is - Family History Family History: Reviewed- Non-Contributory - Social History Smoking Status: Heavy Tobacco smoker (>10 cigarettes/day) Counseled patient to stop smoking for: less than 10 minutes Smoking therapy provided: Yes Patient receptive to therapy: Yes Alcohol use: Yes CD- Drugs: No Caffeine use: Yes Place of Residence: Home Review of Systems General: Weakness, Malaise, As per HPI Eyes: Unremarkable ENT: As per HPI (Dry mouth) Respiratory: Shortness of Breath, As per HPI Cardiovascular: Chest Pain, As per HPI Gastrointestinal: Unremarkable Genitourinary: Unremarkable Musculoskeletal: Unremarkable Integumentary: Unremarkable Neurological: Weakness, As per HPI Lymphatics: Unremarkable Physical Examination - Physical Exam General: Alert, In no apparent distress, Oriented x3, Cooperative, Other ( Slight anxiety noted.) HEENT: Atraumatic, Normocephalic, PERRLA, Other (Dry mucous membranes noted. Patient appears sunburn to the face and neck region.) Neck: Supple, No Thyromegaly Respiratory: Clear to auscultation bilaterally, Normal air movement Cardiovascular: Normal pulses, Regular rate/rhythm Gastrointestinal: Normal bowel sounds, Soft and benign, Non-distended, No tenderness, No masses, No rebound, No guarding Musculoskeletal: No erythema, No tenderness, No warmth Integumentary: No warmth, No cyanosis, Other (Patient is sunburned to the face neck and extremities.) Neurological: Normal speech, Normal strength at 5/5 x4 extr, Normal tone, Normal affect - Studies Laboratory Data (last 24 hrs) 04/28/19 15:45: PT 11.3, INR 0.96 04/28/19 15:45: WBC 6.2, Hgb 14.8, Hct 47.2, Plt Count 229 04/28/19 15:45: Sodium 138, Potassium 4.0, BUN 10, Creatinine 1.08, Glucose 297 H, Magnesium 2.0, Total Bilirubin 0.6, AST 12 L, ALT 28, Alkaline Phosphatase 34 L Assessment and Plan - Plan Impression: Chest pain, shortness of breath with fatigue secondary to dehydration with elevated lactic acid Diabetes mellitus type 2 [id number] with hyperglycemia Hypertension GERD Tobacco abuse Alcohol use Obesity Plan: Chest pain, shortness of breath with fatigue secondary to dehydration with elevated lactic acid: Patient will be admitted for observation and treatment. Patient has received 2 L of IV fluid bolus. Will continue with aggressive IV fluid hydration. Will monitor on telemetry. Will monitor cardiac enzymes. Will monitor lab closely. Will provide DVT prophylaxis-Lovenox. Will also provide folic acid and thiamine. Anticipate discharge within 24 hr if clinically improved. Diabetes mellitus type 2 [id number] with hyperglycemia: Will place on a sliding scale and monitor Accu-Cheks. Will hold metformin and glimepiride at this time. Hypertension: Will hold lisinopril. Restart metoprolol. Will monitor and adjust appropriately. GERD: Will start Pepcid. Tobacco abuse: Tobacco cessation education will be provided. Alcohol use: Will check alcohol and urine drug screen. Encourage alcohol cessation. Obesity: Will address lifestyle modification education. Discharge Plan: Home Plan to discharge in: 24 Hours - Advance Directives Does patient have a Living Will: No Does patient have a Durable POA for Healthcare: No - Code Status/Comfort Care Code Status Assessed: Yes (Patient is full code) Time Spent Managing Pts Care (In Minutes): 55
[2019-04-28 18:36] LABS: Barbiturates NEGATIVE (NEGATIVE); Benzodiazepines NEGATIVE (NEGATIVE); Cocaine NEGATIVE (NEGATIVE); METHAMPHETAM NEGATIVE (NEGATIVE); Methadone NEGATIVE (NEGATIVE); Opiates NEGATIVE (NEGATIVE); Phencyclidine NEGATIVE (NEGATIVE); THC Cannibis NEGATIVE (NEGATIVE)
[2019-04-28] MEDS ORDERED: LORazepam 2 MG/ML VIAL IV PRN (20:36)
[2019-04-28] MEDS ORDERED: ALBUTEROL 2.5 MG/3 ML NEB SOL NEB PRN (20:36)
[2019-04-28] MEDS ORDERED: HYDRALAZINE HCL 20 MG/ML VIAL IV PRN (20:36)
[2019-04-28] MEDS ORDERED: ONDANSETRON 4 MG/2 ML VIAL IV PRN (20:36)
[2019-04-28] MEDS ORDERED: IPRATROPIUM BROM 0.5MG/2.5ML NEB PRN (20:36)
[2019-04-28] MEDS ORDERED: ACETAMINOPHEN 500 MG TAB PO PRN (20:36)
[2019-04-28] MEDS: INSULIN -REGULAR HUMAN 50 UNIT/0.5 ML ML SQ SCH ×2 (20:45→21:00)
[2019-04-28] MEDS: NACHLORIDE 0.45% 1,000 ML IV SCH (21:16)
[2019-04-28] MEDS: FAMOTIDINE 20 MG TAB PO SCH (21:18)
[2019-04-28 23:26] LABS: Creatine Phosphokinase 100 U/L (39-308); Troponin I < 0.02 ng/mL (0.0-0.045)
[2019-04-29] MEDS ORDERED: METOPROLOL TAR 25 MG TAB PO SCH (06:00)
[2019-04-29] MEDS: NACHLORIDE 0.45% 1,000 ML IV SCH (06:12)
[2019-04-29 07:21] LABS: Absolute Lymphocytes (CBC) 1.7 K/uL (0.7-4.9); Basophils % 0.8 % (0-1.3); Hematocrit 42.6 % (39.6-49.0); Lymphocytes % 30.5 % (15.3-44.8); MPV 7.3 fL (7.6-11.3); RBC Red Blood Cell Count 5.44 M/uL (4.33-5.43)
[2019-04-29] MEDS: INSULIN -REGULAR HUMAN 50 UNIT/0.5 ML ML SQ SCH (07:30)
[2019-04-29 07:33] LABS: Magnesium 1.9 mg/dL (1.8-2.4); Potassium 4.1 mmol/L (3.5-5.1)
[2019-04-29 07:34] LABS: CKMB Creatine Kinase MB 1.7 ng/mL (0.3-3.6); Creatine Phosphokinase 73 U/L (39-308); Troponin I < 0.02 ng/mL (0.0-0.045)
[2019-04-29] MEDS: FAMOTIDINE 20 MG TAB PO SCH (08:37)
[2019-04-29] MEDS ORDERED: ENOXAPARIN 40 MG/0.4 ML SQ SCH (09:00)
[2019-04-29] MEDS ORDERED: FOLIC ACID 1 MG TABLET PO SCH (09:00)
[2019-04-29] MEDS ORDERED: THIAMINE HCL 100 MG TABLET PO SCH (09:00)
[2019-04-29] MEDS ORDERED: ASPIRIN EC 81 MG TAB PO SCH (09:00)
--- NOTE | 2019-04-29 10:33 | P.DS ---
Admission Date: 04/28/19 Discharge Date: 04/29/19 Primary Care Provider: Dr. Lamar([facility]) Disposition: ROUTINE DISCHARGE Discharge Condition: GOOD Reason for Admission: Chest pain, shortness of breath Consultations: none Procedures: CT head: FINDINGS: No intracranial hemorrhage, hydrocephalus or extra-axial fluid collection.No areas of brain edema or evidence of midline shift. The paranasal sinuses and mastoids are clear. The calvarium is intact. IMPRESSION: No acute intracranial abnormality. CT chest: FINDINGS: No evidence of pulmonary thromboembolism. No acute aortic finding demonstrated. The lungs are clear. No significant pericardial or pleural fluid. No concerning bony finding. IMPRESSION: No evidence of pulmonary thromboembolism. No acute lung findings. CXR: FINDINGS: Portable technique limits examination quality. The lungs are grossly clear. The heart is normal in size. No displaced fractures. IMPRESSION: No acute intrathoracic process suspected. Medical Problem List: Chest pain, shortness of breath with fatigue secondary to dehydration with elevated lactic acid resolved Diabetes mellitus type 2 egm-[id number]-[id number] with hyperglycemia Hypertension, uncontrolled Obstructive sleep apnea on CPAP GERD Hypertriglyceridemia Hypothyroidism Tobacco abuse Alcohol use Obesity, BMI 34 Brief History of Present Illness: 48-year-old male presented to the emergency room with chest pain and shortness of breath. Patient with history of diabetes, hypertension. Over the past 24 hr patient has been vacationing down in this area. He has been drinking some alcohol and tea. He has been outside in the extreme heat. This morning he woke up feeling very hot. His mouth was very dry. He reported increased fatigue and chest pain with shortness of breath. Chest pain was more of chest tightness. He denied any nausea, vomiting, diarrhea. No sick contacts noted. In the ER patient evaluated. Patient appeared severely dehydrated upon admission. He did receive 2 boluses of IV fluids. Vital signs stable. CT head unremarkable. CT chest unremarkable. Chest x-ray also unremarkable. White count 6.2, hemoglobin 14. Sodium 138, potassium 4.0. BUN of 10, creatinine 1.08 with a GFR 73. Glucose slightly elevated. Bicarb 20. Lactic acid was elevated at 3.7. Troponin unremarkable. Patient was admitted for further observation and treatment. When I saw the patient the ER, family was at bedside. Patient reports increase indigestion with dry mouth. Patient stable at this time. Hospital Course: Patient presented with chest pain, shortness of breath with fatigue. Patient found to be severely dehydrated with elevated lactic acid. Patient received IV fluids. Patient required admission. During the course of his stay. A CT head unremarkable. CT chest showed no evidence of pulmonary embolism or pneumonia. Cardiac enzymes unremarkable. Repeat lab shows improvement. At discharge he is without any chest pain, shortness of breath. Patient appears well-hydrated. At discharge patient will continue his home medications. Recommend to monitor his blood pressures closely. Will also recommend increased oral intake if outside. No work for at least 3-5 days. Will recommend follow up with his PCP in the next 3 days with recheck on lab and clearance to go back to work. 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 Patient may require cardiac stress test and echocardiogram as an outpatient to further evaluate. Patient may continue with aspirin 81 mg daily. Patient with diabetes mellitus type 2, non insulin dependent. Patient presented with hyperglycemia. Patient was monitored closely. Blood sugar now improved. Home medications reviewed. Will recommend to discontinue Actos as this may increase risk of edema, heart failure and rhabdomyolysis. Glimepiride will be increased since Actos will be discontinued. At discharge he may continue with metformin 1000 mg 1 pill twice daily and glimepiride 2 mg 1 pill twice daily. Actos has been discontinued. Recommend to maintain blood sugars less 140 fasting and less than 200 after meals. Further adjustment may be required, this can be further addressed by his PCP. Patient with hypertension. Blood pressure remained slightly elevated. Medications have been adjusted due to his dehydration status. At discharge will recommend to discontinue lisinopril/hydrochlorothiazide. Metoprolol has been adjusted for better control. Will recommend to continue with metoprolol XL 100 mg daily and lisinopril 20 mg daily. Recommend blood pressures to remain less than 150/80. Further adjustment can be done by his PCP. Patient with obstructive sleep apnea. Patient uses CPAP at night. This remained stable. Patient with elevated triglycerides. At discharge will recommend to start fish oil 1000 mg twice daily. Recommend to recheck fasting lipid panel in 4-6 weeks. Patient likely with GERD. Patient may continue with Pepcid 20 mg daily. Patient with hypothyroidism. Tsh within normal range. Patient will continue with [place] thyroid 60 mg daily. Patient with tobacco and alcohol use. Encourage alcohol/tobacco cessation. Will provide education. Patient with obesity, BMI 34. Will provide lifestyle modification education. Vital Signs/Physical Exam: Temp Pulse Resp BP Pulse Ox 98.0 F 74 20 157/97 H 99 04/29/19 08:00 04/29/19 08:50 04/29/19 08:00 04/29/19 08:50 04/29/19 08:00 General: Alert, In no apparent distress, Oriented x3, Cooperative HEENT: Atraumatic Neck: Supple Respiratory: Clear to auscultation bilaterally, Normal air movement Cardiovascular: Normal pulses, Regular rate/rhythm Gastrointestinal: Normal bowel sounds, Soft and benign, Non-distended, No tenderness, No masses, No rebound, No guarding Musculoskeletal: No erythema, No tenderness, No warmth Integumentary: No erythema, No warmth, No cyanosis Neurological: Normal speech, Normal strength at 5/5 x4 extr, Normal tone, Normal affect Laboratory Data at Discharge: WBC 5.5 K/uL (4.3-10.9) 04/29/19 06:56 Hgb 14.0 g/dL (13.6-17.9) 04/29/19 06:56 Hct 42.6 % (39.6-49.0) 04/29/19 06:56 Plt Count 182 K/uL (152-406) D 04/29/19 06:56 PT 11.3 SECONDS (9.5-12.5) 04/28/19 15:45 INR 0.96 04/28/19 15:45 Sodium 138 mmol/L (136-145) 04/29/19 06:56 Potassium 4.1 mmol/L (3.5-5.1) 04/29/19 06:56 BUN 12 mg/dL (7-18) 04/29/19 06:56 Creatinine 0.97 mg/dL (0.55-1.3) 04/29/19 06:56 Glucose 175 mg/dL (74-106) H 04/29/19 06:56 Magnesium 1.9 mg/dL (1.8-2.4) 04/29/19 06:56 Total Bilirubin 0.6 mg/dL (0.2-1.0) 04/28/19 15:45 AST 12 U/L (15-37) L 04/28/19 15:45 ALT 28 U/L (12-78) 04/28/19 15:45 Alkaline Phosphatase 34 U/L (45-117) L 04/28/19 15:45 Troponin I < 0.02 ng/mL (0.0-0.045) 04/29/19 06:56 Triglycerides 389 mg/dL (<150) H 04/29/19 06:56 Cholesterol 177 mg/dL (<200) 04/29/19 06:56 HDL Cholesterol 22 mg/dL (40-60) L 04/29/19 06:56 Cholesterol/HDL Ratio 8.05 04/29/19 06:56 Home Medications: Metformin ER [Glucophage ER*] 1,000 mg PO BID 04/28/19 Thyroid,Pork [Thyroid] 60 mg PO DAILY 04/28/19 Docosahexanoic AC/Epa [Fish Oil 1,000 MG CAP] 1 cap PO BID #60 cap 04/29/19 Famotidine [Pepcid*] 20 mg PO DAILY #30 tab 04/29/19 Glimepiride [Amaryl*] 2 mg PO BID #60 tab 04/29/19 Lisinopril [Prinivil*] 20 mg PO DAILY #30 tab 04/29/19 Metoprolol Succinate [Toprol Xl*] 100 mg PO DAILY #60 tab 04/29/19 New Medications: Docosahexanoic AC/Epa [Fish Oil 1,000 MG CAP] 1 cap PO BID #60 cap Famotidine [Pepcid*] 20 mg PO DAILY #30 tab Glimepiride [Amaryl*] 2 mg PO BID #60 tab Lisinopril [Prinivil*] 20 mg PO DAILY #30 tab Metoprolol Succinate [Toprol Xl*] 100 mg PO DAILY #60 tab Patient Discharge Instructions: 1. Recommend follow up with his PCP within 1 week to follow up this hospitalization. 2. Patient presented with chest pain, shortness of breath with fatigue. Patient found to be severely dehydrated with elevated lactic acid. Patient received IV fluids. Patient required admission. During the course of his stay. A CT head unremarkable. CT chest showed no evidence of pulmonary embolism or pneumonia. Cardiac enzymes unremarkable. Repeat lab shows improvement. At discharge he is without any chest pain, shortness of breath. Patient appears well-hydrated. At discharge patient will continue his home medications. Recommend to monitor his blood pressures closely. Will also recommend increased oral intake if outside. No work for at least 3-5 days. Will recommend follow up with his PCP in the next 3 days with recheck on lab and clearance to go back to work. 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 Patient may require cardiac stress test and echocardiogram as an outpatient to further evaluate. Patient may continue with aspirin 81 mg daily. 3. Patient with diabetes mellitus type 2, non insulin dependent. Patient presented with hyperglycemia. Patient was monitored closely. Blood sugar now improved. Home medications reviewed. Will recommend to discontinue Actos as this may increase risk of edema, heart failure and rhabdomyolysis. Glimepiride will be increased since Actos will be discontinued. At discharge he may continue with metformin 1000 mg 1 pill twice daily and glimepiride 2 mg 1 pill twice daily. Actos has been discontinued. Recommend to maintain blood sugars less 140 fasting and less than 200 after meals. Further adjustment may be required, this can be further addressed by his PCP. 4. Patient with hypertension. Blood pressure remained slightly elevated. Medications have been adjusted due to his dehydration status. At discharge will recommend to discontinue lisinopril/hydrochlorothiazide. Metoprolol has been adjusted for better control. Will recommend to continue with metoprolol XL 100 mg daily and lisinopril 20 mg daily. Recommend blood pressures to remain less than 150/80. Further adjustment can be done by his PCP. 5. Patient with obstructive sleep apnea. Patient uses CPAP at night. This remained stable. 6. Patient with elevated triglycerides. At discharge will recommend to start fish oil 1000 mg twice daily. Recommend to recheck fasting lipid panel in 4-6 weeks. 7. Patient likely with GERD. Patient may continue with Pepcid 20 mg daily. 8. Patient with hypothyroidism. Tsh within normal range. Patient will continue with [place] thyroid 60 mg daily. 9. Patient with tobacco and alcohol use. Encourage alcohol/tobacco cessation. Will provide education. 10. Patient with obesity, BMI 34. Will provide lifestyle modification education. Diet: ADA (2000 ADA) Activity: Ad soumya Time spent managing pt's care (in minutes): 55
[2019-04-29] MEDS ORDERED: METOPROLOL TAR 50 MG TAB PO SCH (12:00)
--- NOTE | 2019-04-29 16:58 | EKG ---
Test Date: 2019-04-28 Test Time: 15:32:13 Climatologist: RV MEASUREMENT RESULTS: Intervals: Rate: 102 [place]: 162 QRSD: 80 QT: 328 QTc: 427 [place]: P: 45 [place]: 162 QRS: 52 T: 28 INTERPRETIVE STATEMENTS: Sinus tachycardia Otherwise normal ECG No previous ECG available for comparison Electronically Signed On 04-29-19 16:56:17 CDT by Jesus Tripp
[2019-04-30] MEDS ORDERED: THYROID 30 MG TAB PO SCH (06:00)
[2019-04-30] MEDS ORDERED: THYROID PORK 60 MG PO SCH (09:00)
== END 2019-04-29 11:45 | disposition home or self-care (01) ==
LOC: ER 15:13 → ERHOLD 17:59 → 4TH 19:47
PROVIDERS: ADMIT Family Medicine; ATTEND Family Medicine
DX: R07.9 Chest pain, unspecified (principal); R06.02 Shortness of breath; E86.0 Dehydration; R74.0 Nonspecific elevation of levels of transaminase and lactic acid dehydrogenase [LDH]; E11.65 Type 2 diabetes mellitus with hyperglycemia; I10 Essential (primary) hypertension; G47.33 Obstructive sleep apnea (adult) (pediatric); K21.9 Gastro-esophageal reflux disease without esophagitis; E78.1 Pure hyperglyceridemia; E03.9 Hypothyroidism, unspecified; F17.210 Nicotine dependence, cigarettes, uncomplicated; E66.9 Obesity, unspecified; Z68.34 Body mass index [BMI] 34.0-34.9, adult; Z72.89 Other problems related to lifestyle
CPT/HCPCS: 36415; 70450; 71045; 71275; 80048; 80061; 80076; 80307; 80320; 81003; 82550; 82553; 82962; 83605; 83735; 83880; 84443; 84484; 85025; 85610; 93005; 96361; 96374; 96375; 99285; G0378; J1650; J7030; Q9967